=== PATIENT | female | born 1965 | race Caucasian/White ===

== ENCOUNTER 2016-04-16 15:09 | Outpatient (CLI) ==
--- NOTE | 2016-04-16 15:37 | DI ---
EXAM: Pelvis AP view, bilateral hips lateral views HISTORY: Pain with known injury. FINDINGS: Bone and joint structures appear normal. There is no displaced fracture or joint disloc ation seen. General bone density and soft tissues are within normal limits. IMPRESSION: Findings within normal limits.
--- NOTE | 2016-04-16 15:42 | DI ---
EXAM: Lumbar spine radiographs. HISTORY: Back pain. COMPARISON: None available. TECHNIQUE: 5 views of the lumbar spine. FINDINGS: The normal curvature and alignment are maintained. Vertebral body heights are normal. No fracture or subluxation identified. There is mild loss of disc height at L2-4 and L4-5. Mild mul tilevel endplate osteophyte formation noted. Multilevel facet arthropathy present, greater in the l ower lumbar spine. Sacral arcuate lines are intact. Soft tissues are unremarkable. IMPRESSION: Mild degenerative changes, greater in the lower lumbar spine.
== END 2016-04-16 15:10 | disposition home or self-care (01) ==
LOC: RAD 15:09
PROVIDERS: ATTEND Family Medicine
DX: M79.606 Pain in leg, unspecified (principal)